=== PATIENT | male | born 1960 | race Caucasian/White ===

== ENCOUNTER 2023-10-11 14:57 | Observation (INO) | payer OTHER, SELFPAY ==
[2023-10-11] VITALS (9 sets, daily range): BP systolic 82–116; BP diastolic 47–76; PULSE 79–99; RESP 16–18; TEMP 36.7–37.1; O2SAT 98–100; BMI 37.1
--- NOTE | 2023-10-11 | ECG_ITS ---
Test Reason : SYNCOPE Blood Pressure : / mmHG Vent. Rate : 082 BPM Atrial Rate : 000 BPM P-R Int : 000 ms QRS Dur : 076 ms QT Int : 334 ms P-R-T Axes : 000 -09 -54 degrees QTc Int : 390 ms Atrial fibrillation Low voltage QRS Inferior infarct , age undetermined Abnormal ECG No previous ECGs available Referred By: Generic ED Physician Electronically Signed By:HIPOLITO PINEDA MD
--- NOTE | ~2023-10-11 | CT_ITS ---
EXAMINATION: CT ABDOMEN AND PELVIS WITH CONTRAST CLINICAL INFORMATION: Sepsis, sacral wound COMPARISON: None available. TECHNIQUE: Multidetector volumetric images were obtained from the superior aspect of the liver through the pubic symphysis following administration 100 mL of Omnipaque 350 intravenous contrast. Sagittal and coronal reformatted images were obtained on the technologist's workstation. Oral contrast: No This CT examination was performed using dose optimization techniques as appropriate, variously including the following: *Automated exposure control *Adjustment of mA and/or kV according to patient size (this includes techniques or standardized protocols for targeted exams where dose is matched to indication/reason for exam; i.e. extremities or head) *Use of iterative reconstruction technique DLP: 1175 mGy-cm FINDINGS: LOCALIZER IMAGES: Obese body habitus. Normal bowel gas pattern. LUNG BASES: No pulmonary consolidation or pleural effusion. HEPATOBILIARY: Mild hepatomegaly with the right hepatic lobe measuring 21.3 cm in craniocaudal dimension. Liver is diffusely hypodense compared to the spleen on these images acquired in the portal venous phase; diffuse hepatic steatosis is suspected. The caudate lobe is hypertrophied and there is mild nodularity of the hepatic contour. Findings are suggestive of cirrhosis. Gallbladder has a normal appearance. No dilated bile ducts. PANCREAS: No edema, pancreatic ductal dilatation or mass. SPLEEN: Mild splenomegaly. Spleen is 15.7 cm AP dimension ADRENAL GLANDS: Normal. KIDNEYS AND URETERS: Kidneys have normal size and cortical thickness. No perinephric fluid collection, urolithiasis or hydroureteronephrosis. BLADDER: The bladder is decompressed by a Munson catheter and is not optimally evaluated. Its wall appears to be diffusely thickened. No evidence of bladder stone, diverticulum or mass. BOWEL, PERITONEUM AND ABDOMINAL WALL: Status post right hemicolectomy with enterocolic anastomosis in the anterior right abdomen, and anterior to this there appears to be an ileostomy. There is mild haziness of mesenteric/omental fat in this region; this could represent postoperative edema, if there was recent surgery. No intra-abdominal abscess or free air. Multiple diverticula of the colon without evidence of diverticulitis. VASCULATURE: Mild atherosclerosis of the abdominal aorta without aneurysm. Inferior vena cava is normal. The main portal vein is mildly enlarged and measures up to 1.7 cm diameter. This could be a manifestation of portal hypertension. LYMPH NODES: No pathologic sized lymph nodes in the abdomen or pelvis. No inguinal lymphadenopathy. PELVIC VISCERA: Mildly enlarged prostate gland measures approximately 4.5 x 3.7 x 4.5 cm. There are calcifications of the vas deferens which although nonspecific, can be seen in patients with a history of chronic diabetes. MUSCULOSKELETAL: A few old healed rib fractures are seen in the partially visualized lower chest. Multilevel degenerative arthropathy of the thoracolumbar spine. Moderate discogenic change and mild degenerative retrolisthesis at L5-S1. Degenerative subarticular sclerosis and osteophyte formation at sacroiliac joints. Sacrum and coccyx are intact. Severe osteoarthritis of the hips. No evidence of soft tissue abscess in the sacral or coccygeal region. No osteomyelitis. CT/CT abdomen pelvis w IV con IMPRESSION: * No evidence of soft tissue abscess in the sacrococcygeal region. * There appears to be cirrhosis and hepatosplenomegaly. The main portal vein is mildly enlarged and this could be a manifestation of portal hypertension. No ascites. * Status post right hemicolectomy with intact enterocolonic anastomosis in the anterior right abdomen. The mild haziness of fat in this region of the abdomen could represent postoperative edema. There is no intraperitoneal fluid collection. * Prostate gland is mildly enlarged and urinary bladder is decompressed by a Munson catheter.
--- NOTE | ~2023-10-11 | XR_ITS ---
EXAMINATION: XR CHEST CLINICAL INFORMATION: Weakness. COMPARISON: None available. TECHNIQUE: Frontal view of the chest was obtained. FINDINGS: The cardiac silhouette is normal in size for this projection. Both lungs are clear. No pleural effusion. No pneumothorax. No acute osseous abnormality. There are degenerative changes of the right humeral head. XR/XR chest 1V IMPRESSION: No acute cardiopulmonary disease.
[2023-10-11] MEDS: 0.9 % Sodium Chloride 1,000 ML 999 ML IV ×2 (15:37→16:12)
[2023-10-11 15:59] LABS: MANUAL DIFF FLAG NO
--- NOTE | 2023-10-11 16:00 | PC.NURSE ---
provider aware of hypotension, patient asymptomatic
--- NOTE | 2023-10-11 16:00 | PC.NURSE ---
Patient with excoriation to bilateral buttocks, area to coccyx covered with abd pad. wound to coccyx packed with gauze. no drainage noted
[2023-10-11 16:01] LABS: Basophils Percent Auto 0.4 % (0-2); Eosinophils Absolute Auto 0.2 X10*3/uL (0.0-0.4); Eosinophils Percent Auto 2.8 % (0-4); Hematocrit 33.9 % (42.0-52.0); Hemoglobin 11.1 g/dl (14.0-18.0); Imm Gran Abs Auto 0.03 X10*3/uL (0.00-0.03); Imm Gran Pct Auto 0.4 % (0.0-0.4); Lymphocytes Percent Auto 11.8 % (20-40); Mean Corpuscular HGB Conc 32.7 g/dl (31.0-36.0); Mean Corpuscular Hemoglobin 31.6 pg (27.0-33.0); Mean Corpuscular Volume 96.6 fL (80.0-98.0); Mean Platelet Volume 10.3 fL (9.4-12.4); Monocytes Absolute Auto 0.6 X10*3/uL (0.1-1.2); Monocytes Percent Auto 6.9 % (2-11); Neutrophils Absolute Auto 6.6 x10*3/uL (2.0-8.3); Neutrophils Percent Auto 77.7 % (45-73); Platelet Count 232 X10*3/uL (160-400); Red Blood Count 3.51 X10*6/uL (4.60-5.80); White Blood Count 8.5 X10*3/uL (4.8-10.8)
[2023-10-11 16:15] LABS: Lactic Acid 2.8 mmol/L (0.5-2.0)
[2023-10-11 16:17] LABS: Alanine Aminotransferase 22 U/L (0-40); Albumin Level 3.6 g/dL (3.5-5.0); Alkaline Phosphatase 103 U/L (39-117); Anion Gap 10 (12-20); Aspartate Amino Transferase 26 U/L (5-37); Bilirubin Direct 0.5 mg/dL (0.0-0.5); Bilirubin Total 1.2 mg/dL (0.0-1.0); Blood Urea Nitrogen 21 mg/dL (9-16); Calcium 9.3 mg/dL (8.4-10.2); Carbon Dioxide 24 mmol/L (22-29); Chloride 107 mmol/L (96-108); Creatinine Clr Calc Pharmacy 93.5; Estimated Glomerular Filt Rate > 60; Glucose Random 131 mg/dL (60-115); Lipase 67 U/L (8-78); Magnesium 1.7 mg/dL (1.6-2.6); Potassium 4.2 mmol/L (3.3-5.1); Sodium 137 mmol/L (135-145); Total Protein 7.2 g/dL (6.5-8.0)
[2023-10-11 16:24] LABS: Troponin-I High Sensitivity 25.9 ng/L (<3.5-35.0)
[2023-10-11] MEDS: Piperacillin Sodium/Tazobactam 3.375 GM in 0.9 % Sodium Chloride 50 ML IV (16:25)
--- NOTE | 2023-10-11 16:28 | ED_ITS ---
HPI - General Adult General Chief complaint: General Medical Stated complaint: WEAK,LOW BP 86/56 PER EMS Time Seen by Provider: 10/11/23 16:15 Source: patient, RN notes reviewed and old records reviewed Mode of arrival: EMS Limitations: other (Patient is a poor historian) History of Present Illness HPI narrative: 62-year-old male with past medical history significant for recent CVA, sacral wound, colostomy presents for evaluation of hypotension. Again, patient is a fairly poor historian and is unable to explain his past medical history. He has never been to this hospital before. He is apparently at a local nursing facility after a CVA about a month ago Patient reports that his sister is his healthcare proxy and should be coming and knows his history better. Apparently per EMS he was at physical therapy today at his facility The patient does not remember having a syncopal episode but ?I felt fine and then everybody was just around me. ? Apparently the patient was hypotensive at nurse facility and he was sent to the ER for evaluation He reports that he had a wound VAC on his sacral wound for a few days He does not have this currently He denies any fevers, chills, cough, shortness of breath, any pain including chest pain/abdominal pain, nausea vomiting. The patient does have a colostomy in his left lower abdomen The patient arrives to the ER hypotensive with a pressure of 99/53. He is afebrile and other vital signs are within normal limits. The patient currently does not meet sepsis criteria Related Data Allergies Allergy/AdvReac Type Severity Reaction Status Date / Time No Known Allergies Allergy Verified 10/11/23 15:17 Review of Systems 2 Constitutional: Constitutional: Denies chills, Denies fever(s), Denies headache(s) and Denies malaise Eyes: Eyes: Denies blurry vision ENT: Denies headache(s) and Denies sore throat Cardiovascular: Cardiovascular: Denies chest pain and Denies dyspnea Respiratory: Respiratory: Denies cough and Denies dyspnea Gastrointestinal: Gastrointestinal: Denies abdominal pain, Denies nausea and Denies vomiting Musculoskeletal: Musculoskeletal: Denies back pain Integumentary/Breasts: Skin/Breast: Reports erythema, Denies rash, Denies skin pain, Denies skin swelling and Reports wounds Neurologic: Denies headache(s) PMFSH Social History Social History Alcohol intake: former Smoked in Last 30 Days: No Use of substances other than those prescribed or required for medical reasons: No Advance Directives: No Advance Directives Information Provided: No Do you have a plan to hurt others: No Plan Physical Exam ED Vital Signs: Vital Signs - 24 hr 10/11/23 15:15 10/11/23 15:59 10/11/23 16:00 Temperature 98.2 F Pulse Rate 79 90 99 Respiratory Rate 18 18 Blood Pressure 99/53 L 82/56 L 93/47 L Pulse Oximetry 100 99 Oxygen Delivery Method Room Air Room Air 10/11/23 16:28 10/11/23 16:46 10/11/23 17:38 Temperature Pulse Rate 86 88 91 Respiratory Rate 18 18 18 Blood Pressure 101/57 L 108/76 103/62 Pulse Oximetry 99 98 98 Oxygen Delivery Method Room Air Room Air 10/11/23 18:00 10/11/23 20:42 Temperature 98.7 F 98.1 F Pulse Rate 85 88 Respiratory Rate 18 16 Blood Pressure 112/65 116/71 Pulse Oximetry 98 100 Oxygen Delivery Method Room Air Room Air BMI result Body Mass Index 37.1 Const General: healthy appearing, comfortable, no acute distress, alert and awake Nutritional Appearance: well nourished Orientation/consciousness: patient oriented x3 HENMT Head: Yes normocephalic and Yes atraumatic Eyes Eyelids: Yes eyelids normal Conjunctivae: conjunctivae normal Sclerae: sclerae normal Corneas: corneas normal Pupils: Equal, round and reactive pupils present EOM: EOMs intact bilaterally Neck Neck: Yes full ROM Resp Effort & Inspection: normal respiratory effort, able to speak in complete sentences, no audible wheezes and not labored Auscultation: clear to auscultation bilaterally GI Other: Colostomy present in left lower abdomen with light brown stool in the bag. Inspection: No distended Palpation (GI): Soft to palpation, not firm, nontender, no guarding and not rigid Skin Other: Patient has a sacral wound, approximately 3 x 3 cm in diameter. It is also approximately 4 cm deep. There is surrounding erythema. There is no active purulence, or foul smelling drainage. The surrounding area is nontender to palpation General skin exam: elasticity normal Neuro General: patient oriented x3 Cranial nerves: Yes Equal, round and reactive pupils present and Yes Bilaterally intact EOM present Cognition (Neuro): normal cognition Extrem Other: Moving all extremities well without any obvious deformities Course Reevaluation(s) Reevaluation #1: Patient was found to have urinary tract infection. He was also in urinary retention so a Munson catheter was placed. This was a clean catch with 4+ bacteria with nitrates and leukocyte esterase. I will add ceftriaxone for better urine coverage. Time: 17:10 Reevaluation #2: Patient's CT scan shows no evidence of abscess in the sacrococcygeal region. There is liver cirrhosis without ascites. Patient is status post right hemicolectomy with an intact anastomosis. Will discuss with the hospitalist for admission due to hypotension, UTI. The patient's repeat lactate was normal at 2.0. Initial troponin was 25.9. There was some question of whether the patient had a syncopal episode, so we will repeat troponin. Time: 20:47 Medications Administered Discontinued Medications Generic Name Dose Route Start Last Admin Trade Name Freq PRN Reason Stop Dose Admin Sodium Chloride 1,000 mls @ 999 mls/hr 10/11/23 15:28 10/11/23 18:28 Ns IV 10/11/23 16:28 Infused .Q1H1M ONE Infusion Sodium Chloride 500 mls @ 500 mls/hr 10/11/23 16:00 10/11/23 20:50 Ns IV 10/11/23 16:59 Infused .Q1H ONE Infusion Sodium Chloride 1,000 mls @ 999 mls/hr 10/11/23 16:00 10/11/23 17:03 Ns IV 10/11/23 17:00 Infused .Q1H1M ONE Infusion Piperacillin Sod/Tazobactam 50 mls @ 100 mls/hr 10/11/23 16:00 10/11/23 17:03 Sod 3.375 gm/ Sodium Chloride IV 10/11/23 16:29 Infused ONCE ONE Infusion Ceftriaxone Sodium 1 gm/ 50 mls @ 100 mls/hr 10/11/23 17:09 10/11/23 18:29 Sodium Chloride IV 10/11/23 17:38 Infused ONCE ONE Infusion Iohexol 100 ml 10/11/23 18:18 10/11/23 18:18 Iohexol 350 Mg/Ml 100 Ml Infus..Btl IV 10/11/23 18:19 100 ml ONCE ONE Administration Medical Decision Making Medical Decision Making MDM Narrative: 62-year-old male with past medical as documented above presents for evaluation of hypotension. The patient has no complaints. Does have a sacral wound. Given his hypotension and elevated lactic of 2.8 antibiotics were ordered and a 30 per kilos bolus was given for ideal body weight given the patient's significant obesity. However other than hypotension his vital signs are within normal limit, he has no leukocytosis. The patient does not technically meet sepsis criteria at this time. A broad workup will be ordered to evaluate for a source of infection, other sources of shock. Differential Diagnosis Differential Diagnoses: The differential diagnosis associated with the presentation includes Cellulitis Osteomyelitis of sacrum Dehydration GABRIELLE Polypharmacy Orthostasis Lab Data MDM Lab Attestation statement: I reviewed the patient's lab results. No leukocytosis the patient does have anemia with a hemoglobin 11.1 hematocrit 33.9. Normal platelet count. Electrolytes within normal limits. The patient's BUN is slightly elevated but his creatinine is within normal limits. Patient's glucose is elevated to 131. There is no evidence of DKA. The patient denies any history of diabetes altogether 10/11/23 15:50 10/11/23 15:50 Labs: Lab Results 10/11/23 10/11/23 10/11/23 Range/Units 15:50 16:43 19:42 WBC 8.5 (4.8-10.8) X10*3/uL RBC 3.51 L (4.60-5.80) X10*6/uL Hgb 11.1 L (14.0-18.0) g/dl Hct 33.9 L (42.0-52.0) % MCV 96.6 (80.0-98.0) fL MCH 31.6 (27.0-33.0) pg MCHC 32.7 (31.0-36.0) g/dl RDW 16.0 (11.0-16.0) % Plt Count 232 (160-400) X10*3/uL MPV 10.3 (9.4-12.4) fL Immature Gran % (Auto) 0.4 (0.0-0.4) % Neut % (Auto) 77.7 H (45-73) % Lymph % (Auto) 11.8 L (20-40) % [place] % (Auto) 6.9 (2-11) % Eos % (Auto) 2.8 (0-4) % Baso % (Auto) 0.4 (0-2) % Lymph # (Auto) 1.0 L (1.2-4.9) X10*3/uL [place] # (Auto) 0.6 (0.1-1.2) X10*3/uL Eos # (Auto) 0.2 (0.0-0.4) X10*3/uL Baso # (Auto) 0.0 (0.0-0.2) X10*3/uL Abs Immat Gran (auto) 0.03 (0.00-0.03) X10*3/uL Absolute Neuts (auto) 6.6 (2.0-8.3) x10*3/uL Absolute Nucleated RBC 0.000 (0.0-0.012) X10*3/uL Nucleated RBC % (auto) 0.0 (0.0-0.2) /100WBC ESR 65 H (0-15) MM/HR Sodium 137 (135-145) mmol/L Potassium 4.2 (3.3-5.1) mmol/L Chloride 107 (96-108) mmol/L Carbon Dioxide 24 (22-29) mmol/L Anion Gap 10 L (12-20) BUN 21 H (9-16) mg/dL Creatinine 1.11 (0.5-1.4) mg/dL Estim Creat Clear Calc 93.5 Estimated GFR > 60 Random Glucose 131 H (60-115) mg/dL Lactic Acid 2.8 H* (0.5-2.0) mmol/L Lactic Acid F/U @ 2Hr 2.0 (0.5-2.0) mmol/L Calcium 9.3 (8.4-10.2) mg/dL Magnesium 1.7 (1.6-2.6) mg/dL Total Bilirubin 1.2 H (0.0-1.0) mg/dL Direct Bilirubin 0.5 (0.0-0.5) mg/dL AST 26 (5-37) U/L ALT 22 (0-40) U/L Alkaline Phosphatase 103 (39-117) U/L Troponin I High Sens 25.9 (<3.5-35.0) ng/L C-Reactive Protein 1.35 H (< or = 0.50) mg/dL Total Protein 7.2 (6.5-8.0) g/dL Albumin 3.6 (3.5-5.0) g/dL Lipase 67 (8-78) U/L Urine Color Yellow Urine Appearance Turbid Urine pH 5.5 (5.0-9.0) Ur Specific [place] 1.015 (1.005-1.025) Urine Protein 30 (1+) H (Neg-Trace) mg/dL Urine Glucose (UA) Negative (Negative) mg/dL Urine Ketones Negative (Negative) mg/dL Urine Blood Large (3+) H (Negative) Urine Nitrite Positive H (Negative) Ur Leukocyte Esterase Large (3+) H (Negative) Urine RBC 6-10 H (0-2) /HPF Urine WBC >50 H (0-5) /HPF Ur Squamous Epith Cells 0-2 (0-2) /HPF Urine Bacteria 4+ (None Seen) Hyaline Casts 3-5 (0-2) /LPF Influenza Type A (PCR) NEGATIVE (Negative) Influenza Type B (PCR) NEGATIVE (Negative) RSV RNA Qual (PCR) NEGATIVE (Negative) SARS-CoV-2 RNA (RT-PCR) NEGATIVE (Negative) 10/11/23 Range/Units 21:04 WBC (4.8-10.8) X10*3/uL RBC (4.60-5.80) X10*6/uL Hgb (14.0-18.0) g/dl Hct (42.0-52.0) % MCV (80.0-98.0) fL MCH (27.0-33.0) pg MCHC (31.0-36.0) g/dl RDW (11.0-16.0) % Plt Count (160-400) X10*3/uL MPV (9.4-12.4) fL Immature Gran % (Auto) (0.0-0.4) % Neut % (Auto) (45-73) % Lymph % (Auto) (20-40) % [place] % (Auto) (2-11) % Eos % (Auto) (0-4) % Baso % (Auto) (0-2) % Lymph # (Auto) (1.2-4.9) X10*3/uL [place] # (Auto) (0.1-1.2) X10*3/uL Eos # (Auto) (0.0-0.4) X10*3/uL Baso # (Auto) (0.0-0.2) X10*3/uL Abs Immat Gran (auto) (0.00-0.03) X10*3/uL Absolute Neuts (auto) (2.0-8.3) x10*3/uL Absolute Nucleated RBC (0.0-0.012) X10*3/uL Nucleated RBC % (auto) (0.0-0.2) /100WBC ESR (0-15) MM/HR Sodium (135-145) mmol/L Potassium (3.3-5.1) mmol/L Chloride (96-108) mmol/L Carbon Dioxide (22-29) mmol/L Anion Gap (12-20) BUN (9-16) mg/dL Creatinine (0.5-1.4) mg/dL Estim Creat Clear Calc Estimated GFR Random Glucose (60-115) mg/dL Lactic Acid (0.5-2.0) mmol/L Lactic Acid F/U @ 2Hr (0.5-2.0) mmol/L Calcium (8.4-10.2) mg/dL Magnesium (1.6-2.6) mg/dL Total Bilirubin (0.0-1.0) mg/dL Direct Bilirubin (0.0-0.5) mg/dL AST (5-37) U/L ALT (0-40) U/L Alkaline Phosphatase (39-117) U/L Troponin I High Sens 26.4 (<3.5-35.0) ng/L C-Reactive Protein (< or = 0.50) mg/dL Total Protein (6.5-8.0) g/dL Albumin (3.5-5.0) g/dL Lipase (8-78) U/L Urine Color Urine Appearance Urine pH (5.0-9.0) Ur Specific [place] (1.005-1.025) Urine Protein (Neg-Trace) mg/dL Urine Glucose (UA) (Negative) mg/dL Urine Ketones (Negative) mg/dL Urine Blood (Negative) Urine Nitrite (Negative) Ur Leukocyte Esterase (Negative) Urine RBC (0-2) /HPF Urine WBC (0-5) /HPF Ur Squamous Epith Cells (0-2) /HPF Urine Bacteria (None Seen) Hyaline Casts (0-2) /LPF Influenza Type A (PCR) (Negative) Influenza Type B (PCR) (Negative) RSV RNA Qual (PCR) (Negative) SARS-CoV-2 RNA (RT-PCR) (Negative) Independent Interpretation I performed an independent interpretation of an: Plain X-Ray (No focal infiltrates or pleural effusions) Radiology Impression Discussion of test interpretation with radiology: I have reviewed the radiologist's reading. Radiologist Impression: IMPRESSION: * No evidence of soft tissue abscess in the sacrococcygeal region. * There appears to be cirrhosis and hepatosplenomegaly. The main portal vein is mildly enlarged and this could be a manifestation of portal hypertension. No ascites. * Status post right hemicolectomy with intact enterocolonic anastomosis in the anterior right abdomen. The mild haziness of fat in this region of the abdomen could represent postoperative edema. There is no intraperitoneal fluid collection. * Prostate gland is mildly enlarged and urinary bladder is decompressed by a Munson catheter. IMPRESSION: No acute cardiopulmonary disease. Discharge Plan Discharge Clinical Impression: Acute hypotension, Urinary tract infection, Sacral wound Patient Disposition: Still a Patient Print Language: Welsh
[2023-10-11 16:40] LABS: Influenza A PCR NEGATIVE (Negative); Influenza B PCR NEGATIVE (Negative); Resp Syncy Virus RNA Qual PCR NEGATIVE (Negative); SARS COV2 PCR INHOUSE NEGATIVE (Negative)
[2023-10-11 16:52] LABS: Appearance Urine Turbid; Color Urine Yellow; Glucose Urine UA Negative (Negative); Leukocyte Esterase Urine Large (3+) (Negative); Nitrite Urine Positive (Negative); PH 5.5 (5.0-9.0); Specific Gravity - Urine 1.015 (1.005-1.025); UMIC TRIGGER UACC YES; Urine Blood Large (3+) (Negative); Urine Ketones Negative (Negative); Urine Protein 30 (1+) mg/dL (Neg-Trace)
--- NOTE | 2023-10-11 16:54 | PC.NURSE ---
Message left for sister Gema to call ER
[2023-10-11] MEDS: 0.9 % Sodium Chloride 500 ML IV (17:03)
[2023-10-11 17:04] LABS: Bacteria Urine 4+ (None Seen); Squamous Epithelial Cell Urine 0-2 /HPF (0-2); UACC Culture Trigger YES; WBC Urine >50 /HPF (0-5)
[2023-10-11] MEDS: cefTRIAXone sodium 1 GM in 0.9 % Sodium Chloride 50 ML IV (17:33)
[2023-10-11 17:58] LABS: Reflex Lactate? Lactic Acid Added
[2023-10-11] MEDS: iohexoL 350 MG/ML 100 ML INFUS..BTL IV (18:18)
[2023-10-11 18:30] LABS: C Reactive Protein 1.35 mg/dL (< or = 0.50)
[2023-10-11 18:58] LABS: Erythrocyte Sedimentation Rate 65 MM/HR (0-15)
[2023-10-11 21:40] LABS: Troponin-I High Sensitivity 26.4 ng/L (<3.5-35.0)
--- NOTE | 2023-10-11 22:20 | PHA.MEDREC ---
Pharmacy Consult ? Medication Reconciliation Pharmacy has completed the medication reconciliation. Patient from [facility] with med list. Tri Petty, [facility]
--- NOTE | 2023-10-11 23:04 | P.HPHOSP_ITS ---
History of Present Illness Date of Service: 10/11/23 Attending physician on admission: Derrek Bui Chief Complaint: Hypotension Pt is a 62-year-old male with a PMH significant for?HTN, paroxysmal AFib on Eliquis, HLD, GERD, BPH, alcohol use disorder, gout, CVA, and hx of colectomy with ostomy in place who presents to the ED from [facility] and [facility] for evaluation of hypotension. Patient is confused at baseline and a poor historian. He is unable to provide any information concerning his PMH or current presenting symptoms. States he has no acute concerns at this time. Denies any acute pain. Chart review indicates patient was presented to [facility] in early August of this year on a Section 12 for failure to thrive. Workup there revealed new stroke and hospital course complicated by new onset AFib with RVR and SBO that failed conservative treatment. Patient was then transferred [place] [facility] [place] hospital course was complicated by visceral perforation and emergent exploratory laparotomy with ostomy created on 08/27/2023. Hospital course further complicated by sacral pressure ulcer with surgical debridement on 09/11/2023 and abdominal scar wound dehiscence and recurrent episodes of urinary retention that required Munson placement. Patient was then discharged to rehab. Earlier this morning at [facility] patient was found to be hypotensive and sent to the ED for further evaluation. Staff at facility say patient is ?very? confused at baseline, though apparently has been eating and drinking normally. ? In the ED pt was tachycardic up to 99 and hypotensive as low as 82/56. Labs were significant for lactic acid of 2.8, C-reactive protein 1.35, and ESR 65. Initial troponin 25.9 but repeat flat at 26.4. No leukocytosis. No significant electrolyte abnormalities. Renal and hepatic function WNL. CXR showed no acute cardiopulmonary disease. CT?of abdomen and pelvis found no evidence of acute abdomen, including no soft tissue abscess in in sacrococcygeal region, though did show likely cirrhosis and hepatosplenomegaly with enlarged portal vein. EKG demonstrated atrial fibrillation without evidence of significant ST elevations or depressions. Pt was treated with 2.5 L IVF, Zosyn, and ceftriaxone. Pt will be admitted to the hospital under observation for treatment and further evaluation of hypotension. Review of Systems 2 Review of Systems: Unable to obtain due to patient's mentation [facility] Medical History (Updated 10/12/23 @ 00:10 by FERNIE Doll) Bowel perforation GERD (gastroesophageal reflux disease) Gout HTN (hypertension) Alcohol dependence Obesity, Class II, BMI 35-39.9 Paroxysmal A-fib SBO (small bowel obstruction) CVA (cerebral vascular accident) Surgical History (Updated 10/12/23 @ 00:10 by FERNIE Doll) Status post osteotomy Social History Alcohol intake: former Smoked in Last 30 Days: No Use of substances other than those prescribed or required for medical reasons: No Advance Directives: No Advance Directives Information Provided: No Do you have a plan to hurt others: No Plan Meds Allergies Allergy/AdvReac Type Severity Reaction Status Date / Time No Known Allergies Allergy Verified 10/11/23 15:17 Home Medications ?Medication ?Instructions ?Recorded ?Confirmed ?Last Taken ?Type apixaban 5 mg tablet (Eliquis) 5 mg PO BID 10/11/23 10/11/23 Unknown History atorvastatin 10 mg tablet 10 mg PO BEDTIME 10/11/23 10/11/23 Unknown History colchicine 0.6 mg tablet 0.6 mg PO DAILY 10/11/23 10/11/23 Unknown History diltiazem HCl 180 mg capsule,24 360 mg PO DAILY 10/11/23 10/11/23 Unknown History hr,extended release folic acid 1 mg tablet 1 mg PO DAILY 10/11/23 10/11/23 Unknown History hydralazine 10 mg tablet 10 mg PO TID 10/11/23 10/11/23 Unknown History losartan 100 mg tablet 100 mg PO DAILY 10/11/23 10/11/23 Unknown History multivitamin 1 tab PO DAILY 10/11/23 10/11/23 Unknown History oxycodone 5 mg tablet 5 mg PO QID PRN pain 10/11/23 10/11/23 Unknown History pantoprazole 40 mg granules 40 mg PO BID 10/11/23 10/11/23 Unknown History delayed-release for susp in packet polyethylene glycol 3350 17 17 g PO DAILY 10/11/23 10/11/23 Unknown History gram/dose oral powder (Miralax) pyridoxine (vitamin B6) 50 mg 50 mg PO DAILY 10/11/23 10/11/23 Unknown History tablet sennosides 8.6 mg tablet (senna) 8.6 mg PO DAILY 10/11/23 10/11/23 Unknown History tamsulosin 0.4 mg capsule 0.4 mg PO DAILY 10/11/23 10/11/23 Unknown History thiamine HCl (vitamin B1) 100 mg 100 mg PO DAILY 10/11/23 10/11/23 Unknown History tablet trazodone 50 mg tablet 25 mg PO BEDTIME PRN Insomnia 10/11/23 10/11/23 Unknown History Physical Exam 2 Vital Signs and Narrative: Vital Signs: Last Vital Signs Temp 98.3 F 10/11/23 22:50 Pulse 81 10/11/23 22:50 Resp 16 10/11/23 22:50 BP 108/63 10/11/23 22:50 Pulse Ox 100 10/11/23 22:50 O2 Del Method Room Air 10/11/23 22:50 BMI result Body Mass Index 37.1 Constitutional: Alert, in no acute distress. Mental Status: Oriented to person and place but not to time or situation. Eyes: Pupils are equal, round, and reactive to light. Ear, Nose, and Throat: Oropharynx clear, mucous membranes moist. Ears and nose without deformities. Trachea midline. Respiratory: Clear to auscultation bilaterally. No wheezing, rales, or rhonchi. Cardiovascular: Irregularly irregular rhythm. Gastrointestinal: Abdomen soft, non-tender, non-distended. Normal bowel sounds. Colostomy in place Neurologic: Cranial nerves II-XII are grossly intact bilaterally. No focal neurological deficits. Moves all extremities spontaneously. Skin: Warm, dry. Stage 4 sacral decubitus ulcer without purulent discharge. Musculoskeletal: No cyanosis or clubbing. Extremities: No edema. Psychiatric: Pleasantly confused. Results Labs 10/11/23 15:50 10/11/23 15:50 Labs: Laboratory Results - last 24 hr 10/11/23 10/11/23 10/11/23 15:50 16:43 19:42 MCV 96.6 MCH 31.6 MCHC 32.7 RDW 16.0 Plt Count 232 MPV 10.3 Immature Gran % (Auto) 0.4 Neut % (Auto) 77.7 H Lymph % (Auto) 11.8 L Young % (Auto) 6.9 Eos % (Auto) 2.8 Baso % (Auto) 0.4 Lymph # (Auto) 1.0 L Young # (Auto) 0.6 Eos # (Auto) 0.2 Baso # (Auto) 0.0 Abs Immat Gran (auto) 0.03 Absolute Neuts (auto) 6.6 Absolute Nucleated RBC 0.000 Nucleated RBC % (auto) 0.0 ESR 65 H Anion Gap 10 L Estim Creat Clear Calc 93.5 Estimated GFR > 60 Random Glucose 131 H Lactic Acid 2.8 H* Lactic Acid F/U @ 2Hr 2.0 Calcium 9.3 Magnesium 1.7 Total Bilirubin 1.2 H Direct Bilirubin 0.5 AST 26 ALT 22 Alkaline Phosphatase 103 Troponin I High Sens 25.9 C-Reactive Protein 1.35 H Total Protein 7.2 Albumin 3.6 Lipase 67 Urine Color Yellow Urine Appearance Turbid Urine pH 5.5 Ur Specific [place] 1.015 Urine Protein 30 (1+) H Urine Glucose (UA) Negative Urine Ketones Negative Urine Blood Large (3+) H Urine Nitrite Positive H Ur Leukocyte Esterase Large (3+) H Urine RBC 6-10 H Urine WBC >50 H Ur Squamous Epith Cells 0-2 Urine Bacteria 4+ Hyaline Casts 3-5 Influenza Type A (PCR) NEGATIVE Influenza Type B (PCR) NEGATIVE RSV RNA Qual (PCR) NEGATIVE SARS-CoV-2 RNA (RT-PCR) NEGATIVE 10/11/23 21:04 MCV MCH MCHC RDW Plt Count MPV Immature Gran % (Auto) Neut % (Auto) Lymph % (Auto) Young % (Auto) Eos % (Auto) Baso % (Auto) Lymph # (Auto) Young # (Auto) Eos # (Auto) Baso # (Auto) Abs Immat Gran (auto) Absolute Neuts (auto) Absolute Nucleated RBC Nucleated RBC % (auto) ESR Anion Gap Estim Creat Clear Calc Estimated GFR Random Glucose Lactic Acid Lactic Acid F/U @ 2Hr Calcium Magnesium Total Bilirubin Direct Bilirubin AST ALT Alkaline Phosphatase Troponin I High Sens 26.4 C-Reactive Protein Total Protein Albumin Lipase Urine Color Urine Appearance Urine pH Ur Specific [place] Urine Protein Urine Glucose (UA) Urine Ketones Urine Blood Urine Nitrite Ur Leukocyte Esterase Urine RBC Urine WBC Ur Squamous Epith Cells Urine Bacteria Hyaline Casts Influenza Type A (PCR) Influenza Type B (PCR) RSV RNA Qual (PCR) SARS-CoV-2 RNA (RT-PCR) Imaging Radiologist's Impressions: Impressions Chest X-Ray 10/11/23 15:46 IMPRESSION: No acute cardiopulmonary disease. Abdomen/Pelvis CT 10/11/23 18:26 IMPRESSION: * No evidence of soft tissue abscess in the sacrococcygeal region. * There appears to be cirrhosis and hepatosplenomegaly. The main portal vein is mildly enlarged and this could be a manifestation of portal hypertension. No ascites. * Status post right hemicolectomy with intact enterocolonic anastomosis in the anterior right abdomen. The mild haziness of fat in this region of the abdomen could represent postoperative edema. There is no intraperitoneal fluid collection. * Prostate gland is mildly enlarged and urinary bladder is decompressed by a Munson catheter. Assessment and Plan (1) Urinary tract infection: Status: Acute (2) Acute hypotension: Status: Acute Plan Pt is a 62-year-old male with a PMH significant for?HTN, paroxysmal AFib on Eliquis, HLD, GERD, BPH, alcohol use disorder, gout, CVA, and hx of colectomy with ostomy in place who presents to the ED from [facility] and [facility] for evaluation of hypotension. Pt will be admitted to the hospital under observation for treatment and further evaluation of hypotension. Hypotention Patient's BP as low as 82/56 in the ED Possibly secondary to volume depletion dehydration Received 2.5 L of IVF in the ED Closely monitor BP Check orthostatics in the morning Acute UTI Patient does not meet SIRS criteria: Tachycardia, but no fever, tachypnea, or leukocytosis Patient received IVF and started on broad-spectrum antibiotics in the ED Continue ceftriaxone, started 10/11/2023 Lactic acidosis, resolved Lactic acid 2.8 at time of presentation, repeat 2.0 after fluids Likely secondary to tissue hypoperfusion from dehydration, not sepsis Patient received IVF in the ED Patient does not meet SIRS criteria, no sepsis Stage 4 sacral decubitus ulcer Does not look overtly infected Wound care consult Hx of urinary retention Munson inserted in ED, draining over 800 mls Maintain Munson for now HLD Continue Statin Paroxysmal AFib Continue Eliquis BPH Continue tamsulosin Hx of alcohol use disorder Thiamine GERD PPI Gout Continue colchicine Obesity class II Weight loss encouraged Full Code Attending:?Dr. Ellington DVT Prophylaxis: On Eliquis Patient will be admitted to the hospital under observation for treatment and further evaluation of hypotension in the setting of acute UTI. Quality Stroke Does the patient have a stroke diagnosis?: No VTE Prior VTE?: No VTE Risk Level:: Medical - moderate - high VTE Device Contraindication: Treatment Not Indicated VTE Drug Contraindication: N/A - Med Ordered
[2023-10-12] VITALS (8 sets, daily range): BP systolic 125–142; BP diastolic 62–85; PULSE 81–108; RESP 16–18; TEMP 36–36.2; O2SAT 98–100; BMI 36.6
[2023-10-12] MEDS: 0.9 % Sodium Chloride Flush 3 ML SYRINGE IVFLUSH ×2 (02:16→10:27)
--- NOTE | 2023-10-12 05:20 | HO.SKINPHOTO ---
Location: Category: Stage: Length: Width: Depth: cm Location: Category: Stage: Length: Width: Depth: cm Location: Category: Stage: Length: Width: Depth: cm Location: Category: Stage: Length: Width: Depth: cm Location: Category: Stage: Length: Width: Depth: cm Location: Category: Stage: Length: Width: Depth: cm Sacral wound upon admission, need wound consult
[2023-10-12 06:23] LABS: Anion Gap 10 (12-20); Blood Urea Nitrogen 14 mg/dL (9-16); Calcium 8.8 mg/dL (8.4-10.2); Carbon Dioxide 22 mmol/L (22-29); Chloride 112 mmol/L (96-108); Creatinine Clr Calc Pharmacy 135.6; Estimated Glomerular Filt Rate > 60; Glucose Random 85 mg/dL (60-115); Sodium 140 mmol/L (135-145)
[2023-10-12 06:25] LABS: Hematocrit 32.3 % (42.0-52.0); Mean Corpuscular Hemoglobin 30.9 pg (27.0-33.0); Mean Corpuscular Volume 99.7 fL (80.0-98.0); Mean Platelet Volume 10.8 fL (9.4-12.4); Platelet Count 186 X10*3/uL (160-400); Red Blood Count 3.24 X10*6/uL (4.60-5.80); Red Cell Distribution Width 15.7 % (11.0-16.0); White Blood Count 6.1 X10*3/uL (4.8-10.8)
[2023-10-12] MEDS: Thiamine HCL 100 MG TABLET PO (10:26)
[2023-10-12] MEDS: dilTIAZem HCL CD 180 MG CAP.ER.24H 360 MG PO (10:26)
[2023-10-12] MEDS: Tamsulosin HCL 0.4 MG CAPSULE PO (10:26)
--- NOTE | 2023-10-12 10:47 | MHC.CM.PN ---
Addendum entered by Marian Vann 10/12/23 16:10: AUTH HAS BEEN OBTAINED, TRANSPORT BOOKED for 6 pm via [employer]. Addendum entered by Marian Vann 10/12/23 13:07: CORRECTION: PT IS A STR RESIDENT AT [facility] AUTH WILL NEED TO BE OBTAINED PENDING PT EVAL. BLS TRANSPORT PUSHED TO 4 PM, CENTER UPDATED Original Note: UNABLE TO DELIVER AGUILAR, PT NOT ABLE TO UNDERSTAND DUE TO COGNITIVE LOSS AND CM UNABLE TO REACH X 2 VIA TELEPHONE. PER RECORD REVIEW, PT IS A SENIOR CARE CARE RESIDENT AT [facility]. RETURN REFERRAL SENT AND COPY OF HCP REQUESTED. PER MD ROUNDS, PT WILL BE MEDICALLY CLEARED TO DC BACK TO [facility] TODAY. BLS TRANSPORT SET UP FOR 2:30 PM VIA [employer].
--- NOTE | 2023-10-12 10:58 | P.DS_ITS ---
DS: Providers Provider Date of Service: 10/12/23 Date of admission: 10/11/23 23:51 Date of discharge: 10/12/23 Primary care physician: Unknown Physician Admitting clinician: Loida Lindsey Attending physician on admission: Derrek Bui Consults: 10/12/23 00:03 Consult to Wound Care Routine Reason for consultation: Sacral decubitus ulcer stage IV 10/12/23 05:27 Consult to Wound Care Routine Reason for consultation: sacral wound Attending physician on discharge: Jarad Manjarrez Discharging clinician: Lilly Henderson DS: Diagnosis Discharge Diagnosis (1) Urinary tract infection: Status: Acute (2) Acute hypotension: Status: Acute DS: Summary Hospital Course Hospital Course: Chief Complaint: Hypotension Pt is a 62-year-old male with a PMH significant for?HTN, paroxysmal AFib on Eliquis, HLD, GERD, BPH, alcohol use disorder, gout, CVA, and hx of colectomy with ostomy in place who presents to the ED from [facility] for evaluation of hypotension. Patient is confused at baseline and a poor historian. He is unable to provide any information concerning his PMH or current presenting symptoms. States he has no acute concerns at this time. Denies any acute pain. Chart review indicates patient was presented to [facility] in early August of this year on a Section 12 for failure to thrive. Workup there revealed new stroke and hospital course complicated by new onset AFib with RVR and SBO that failed conservative treatment. [place] [facility] [facility] [place] was complicated by visceral perforation and emergent exploratory laparotomy with ostomy created on 08/27/2023. Hospital course further complicated by sacral pressure ulcer with surgical debridement on 09/11/2023 and abdominal scar wound dehiscence and recurrent episodes of urinary retention that required Munson placement. Patient was then discharged to rehab. Earlier this morning at [facility] patient was found to be hypotensive and sent to the ED for further evaluation. Staff at facility say patient is ?very? confused at baseline, though apparently has been eating and drinking normally. ? In the ED pt was tachycardic up to 99 and hypotensive as low as 82/56. Labs were significant for lactic acid of 2.8, C-reactive protein 1.35, and ESR 65. Initial troponin 25.9 but repeat flat at 26.4. No leukocytosis. No significant electrolyte abnormalities. Renal and hepatic function WNL. CXR showed no acute cardiopulmonary disease. CT?of abdomen and pelvis found no evidence of acute abdomen, including no soft tissue abscess in in sacrococcygeal region, though did show likely cirrhosis and hepatosplenomegaly with enlarged portal vein. EKG demonstrated atrial fibrillation without evidence of significant ST elevations or depressions. Pt was treated with 2.5 L IVF, Zosyn, and ceftriaxone. Pt will be admitted to the hospital under observation for treatment and further evaluation of hypotension. Hospital course: Pt admitted overnight for acute hypotension likely related to medications and possibly hypovolemia given slight bump in creat on arrival, though no true kidney injury. Blood pressures stabilized following IVF and has been weaned from IVF with BP this morning 142/75. Will resume diltiazem 360mg daily. Continue holding hydralazine 10mg TID and losartan 100mg daily. Blood pressure on discharge is . Pt was not meeting SIRS criteria, hypotension not related to sepsis/severe sepsis. Acute lactic acidosis was related to hypoperfusion from dehydration. Would recommend continuing diltiazem 360mg ER on discharge. If hyptension recurs, resume losartan and if needed then resume hydralazine. UA consistent with UTI though cultures are pending. Will discharge on cefuroxime 500mg BID x7 days. Should cultures result with different sensitivity, antibiotic regimen will be changed. Pt does have stage IV decubitus ulcer which was present on admission. Would recommend continued wound care at short-term rehab. Evalauted by PT, recommending STR. Pt will be discharged back to [facility]. Anticipated need for rehab less than 30 days. For hyperlipidemia, was continued on statin. For atrial fibrillation, was continued on Eliquis for anticoagulation. Diltiazem was resumed this morning. For BPH was continued on tamsulosin and forgot was continued on colchicine. Status at Discharge Overall status at discharge: patient is progressing back to baseline Time Attestation Discharge Coordination Time (in mins): 43 Quality: Safe Use of Opioids Does Pt have an Active Cancer Diagnosis on the Problem List?: No Quality: Stroke Does the patient have a stroke diagnosis?: No Physical Exam Vital Signs: Vital Signs: Last Vital Signs Temp 97.0 F 10/12/23 07:51 Pulse 98 10/12/23 07:51 Resp 18 10/12/23 07:51 BP 142/75 H 10/12/23 10:26 Pulse Ox 98 10/12/23 07:51 O2 Del Method Room Air 10/12/23 07:51 BMI result Body Mass Index 36.6 Constitutional - Awake and Alert, No apparent distress Eyes - PERRLA, EOMI Cardiovascular - S1S2, RRR, No edema Respiratory - Normal lung expansion, Normal respiratory effort, No respiratory distress, CTA bilaterally Gastrointestinal - NT / ND; +BS; No rebound or guarding - No CVA tenderness Extremities - no calf tenderness bilaterally, no swelling Skin - Warm/Dry Neurological - Alert & oriented x3 Psychological - Appropriate affect DS: Data Data Completed and Pending Labs on day of discharge: Laboratory Results - last 24 hr 10/11/23 10/11/23 10/11/23 15:50 16:43 19:42 WBC 8.5 RBC 3.51 L Hgb 11.1 L Hct 33.9 L MCV 96.6 MCH 31.6 MCHC 32.7 RDW 16.0 Plt Count 232 MPV 10.3 Immature Gran % (Auto) 0.4 Neut % (Auto) 77.7 H Lymph % (Auto) 11.8 L [place] % (Auto) 6.9 Eos % (Auto) 2.8 Baso % (Auto) 0.4 Lymph # (Auto) 1.0 L [place] # (Auto) 0.6 Eos # (Auto) 0.2 Baso # (Auto) 0.0 Abs Immat Gran (auto) 0.03 Absolute Neuts (auto) 6.6 Absolute Nucleated RBC 0.000 Nucleated RBC % (auto) 0.0 ESR 65 H Sodium 137 Potassium 4.2 Chloride 107 Carbon Dioxide 24 Anion Gap 10 L BUN 21 H Creatinine 1.11 Estim Creat Clear Calc 93.5 Estimated GFR > 60 Random Glucose 131 H Lactic Acid 2.8 H* Lactic Acid F/U @ 2Hr 2.0 Calcium 9.3 Magnesium 1.7 Total Bilirubin 1.2 H Direct Bilirubin 0.5 AST 26 ALT 22 Alkaline Phosphatase 103 Troponin I High Sens 25.9 C-Reactive Protein 1.35 H Total Protein 7.2 Albumin 3.6 Lipase 67 Urine Color Yellow Urine Appearance Turbid Urine pH 5.5 Ur Specific [place] 1.015 Urine Protein 30 (1+) H Urine Glucose (UA) Negative Urine Ketones Negative Urine Blood Large (3+) H Urine Nitrite Positive H Ur Leukocyte Esterase Large (3+) H Urine RBC 6-10 H Urine WBC >50 H Ur Squamous Epith Cells 0-2 Urine Bacteria 4+ Hyaline Casts 3-5 Influenza Type A (PCR) NEGATIVE Influenza Type B (PCR) NEGATIVE RSV RNA Qual (PCR) NEGATIVE SARS-CoV-2 RNA (RT-PCR) NEGATIVE 10/11/23 10/12/23 21:04 05:49 WBC 6.1 RBC 3.24 L Hgb 10.0 L Hct 32.3 L MCV 99.7 H MCH 30.9 MCHC 31.0 RDW 15.7 Plt Count 186 MPV 10.8 Immature Gran % (Auto) Neut % (Auto) Lymph % (Auto) [place] % (Auto) Eos % (Auto) Baso % (Auto) Lymph # (Auto) [place] # (Auto) Eos # (Auto) Baso # (Auto) Abs Immat Gran (auto) Absolute Neuts (auto) Absolute Nucleated RBC 0.000 Nucleated RBC % (auto) 0.0 ESR Sodium 140 Potassium 4.0 Chloride 112 H Carbon Dioxide 22 Anion Gap 10 L BUN 14 Creatinine 0.76 Estim Creat Clear Calc 135.6 Estimated GFR > 60 Random Glucose 85 Lactic Acid Lactic Acid F/U @ 2Hr Calcium 8.8 Magnesium Total Bilirubin Direct Bilirubin AST ALT Alkaline Phosphatase Troponin I High Sens 26.4 C-Reactive Protein Total Protein Albumin Lipase Urine Color Urine Appearance Urine pH Ur Specific [place] Urine Protein Urine Glucose (UA) Urine Ketones Urine Blood Urine Nitrite Ur Leukocyte Esterase Urine RBC Urine WBC Ur Squamous Epith Cells Urine Bacteria Hyaline Casts Influenza Type A (PCR) Influenza Type B (PCR) RSV RNA Qual (PCR) SARS-CoV-2 RNA (RT-PCR) Discharge Plan Discharge Anticipated Discharge Date/Time: 10/12/23 11:34 Patient Disposition: Xfer [facility] Discharge Diagnosis: UTI, hypotension Referrals: Physician,Unknown J [Physician] - 1 Week Discharge Medications: New cefuroxime axetil 500 mg tablet 500 mg PO BID Qty: 14 0RF Continued multivitamin Tablet 1 tab PO DAILY hydralazine 10 mg Tablet 10 mg PO TID sennosides [senna] 8.6 mg Tablet 8.6 mg PO DAILY diltiazem HCl 180 mg Capsule,Extended Release 24 Hr 360 mg PO DAILY trazodone 50 mg Tablet 25 mg PO BEDTIME PRN (Reason: Insomnia) atorvastatin 10 mg Tablet 10 mg PO BEDTIME thiamine HCl (vitamin B1) 100 mg Tablet 100 mg PO DAILY tamsulosin 0.4 mg Capsule 0.4 mg PO DAILY pyridoxine (vitamin B6) 50 mg Tablet 50 mg PO DAILY folic acid 1 mg Tablet 1 mg PO DAILY polyethylene glycol 3350 [Miralax] 17 gram/dose Powder 17 g PO DAILY colchicine 0.6 mg Tablet 0.6 mg PO DAILY losartan 100 mg Tablet 100 mg PO DAILY oxycodone 5 mg tablet 5 mg PO QID PRN (Reason: pain) pantoprazole [address] For Susp In Packet 40 mg PO BID Eliquis 5 mg tablet 5 mg PO BID Discharge Orders: Discharge Order (Routine); Ordered 10/12/23 Ordered By: Lilly Henderson Diet: Advance to usual diet Activity on Discharge: As tolerated Stand Alone Forms: Patient Portal Discharge page Print Language: Greenlandic Care Plan Goals: Treat UTI Prevent hypotension Health Concerns: Acute UTI Acute lactic acidosis Acute hypotension Plan of Treatment: Acute UTI- no sepsis -continue cefuroxime 500mg BID Acute hypotension- resolved -due to hypovalemia and medications -continue diltiazem 360 mg ER only. Should patient remain hypertensive would recommend resuming losartan followed by hydralazine if persists -encourage p.o. intake # acute lactic acidosis -due to hypoperfusion from dehydration -resolved -encourage p.o. hydration Assessment: see above. see dc summary Discharge Date/Time: 10/12/23 18:47
[2023-10-12] MEDS: Pyridoxine HCl (Vitamin B6) 50 MG TABLET PO (11:29)
[2023-10-12] MEDS: Colchicine 0.6 MG TABLET PO (11:29)
--- NOTE | 2023-10-12 13:40 | HO.WOUND ---
Wound Consult: Initial 62yr old?M admitted to [facility] [place] on 10/10 - See progress notes and H&P for detailed history.? Wound consult placed for Sacral wound POA.? Arrival to bedside patient was working with PT for mobilization. Agreeable to my return at a future date or time. Discussed the wound with direct care nurse and reviewed photo below for topical recommendation to be put in place until further assessment. Sacrum Etiology: Stage 4 Pressure injury ??Present on Admission Based on photo review and chart review Wound Bed: dark red tissue with adherent yellow slough - depth appreciable in photo Drainage / Odor: unknown staff reports no dressing in place at this time Edges: ? Linear (chart review reveals s/p debridement at outside facility Faith wound: ? MASD red dry tissue Goals of Treatment: Packing with durafiber AG and foam dressing application off load pressure ? Recommendations: 1. Turn and Reposition every 2 hours and as needed for patient comfort.? Use pillows or wedges to support off loading positions. 2. Off Load all bony prominences with use of pillows and heel boots if needed.? Apply Preventative foams where needed. ? 3. Monitor for incontinence and moisture control, use barrier creams when needed for prevention and treatment. 4. Provide adequate and supplemental nutrition.? 5. Order or Continue low air loss mattress. 6. When applicable maintain blood glucose levels per Providers order. 7. Sacrum - Cleanse and irrigate with NS, pat dry. Apply Skin prep to periwound. Lightly pack wound bed with Durafiber AG to fill space, cover with sacral foam dressing. Change every other day. Re-consult wound care Nurse for wound deterioration or wound changes.
== END 2023-10-12 18:47 | disposition skilled nursing facility (03) ==
LOC: HO.ED 16:43 → HO.EDOVER 10-12 00:03 → HO.S3 10-12 00:18
PROVIDERS: Physician Assistant; Admitting Provider Student in an Organized Health Care Education/Training Program; Emergency Provider Emergency Medicine; PCP Internal Medicine; Visit Provider Physician Assistant
DX: N39.0 Urinary tract infection, site not specified (principal); I95.9 Hypotension, unspecified; R55 Syncope and collapse; R33.9 Retention of urine, unspecified; L89.154 Pressure ulcer of sacral region, stage 4; I10 Essential (primary) hypertension; I48.0 Paroxysmal atrial fibrillation; E78.5 Hyperlipidemia, unspecified; K21.9 Gastro-esophageal reflux disease without esophagitis; M10.9 Gout, unspecified; E87.20 Acidosis, unspecified; N40.0 Benign prostatic hyperplasia without lower urinary tract symptoms; E66.01 Morbid (severe) obesity due to excess calories; Z68.37 Body mass index [BMI] 37.0-37.9, adult; Z79.01 Long term (current) use of anticoagulants; Z86.73 Personal history of transient ischemic attack (TIA), and cerebral infarction without residual deficits; Z93.3 Colostomy status; Z03.818 Encounter for observation for suspected exposure to other biological agents ruled out
CPT/HCPCS: 0241U; 36415; 71045; 74177; 80048; 80076; 81001; 83605; 83690; 83735; 84484; 85025; 85027; 85652; 86140; 87040; 87086; 87088; 87186; 93005; 96361; 96365; 96367; 97161; 99221; 99285; C1758; J0696; J2543; Q9967

== ENCOUNTER → 2023-10-11 15:29 | Outpatient (BNV) | payer MEDICAID, SELFPAY | PROVIDERS: Emergency Provider Emergency Medicine; Visit Provider Internal Medicine Cardiovascular Disease | DX: I48.91 Unspecified atrial fibrillation (principal) | CPT/HCPCS: 93010 ==

== ENCOUNTER → 2023-10-11 23:51 | Outpatient (BNV) | payer MEDICAID, SELFPAY | PROVIDERS: Admitting Provider Student in an Organized Health Care Education/Training Program; Emergency Provider Emergency Medicine; Visit Provider Student in an Organized Health Care Education/Training Program | DX: N39.0 Urinary tract infection, site not specified (principal); I95.9 Hypotension, unspecified | CPT/HCPCS: 99222; 99239 ==